=== PATIENT | male | born 1995 | race Caucasian/White ===

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

== ENCOUNTER → 2017-04-24 16:13 | Emergency (ER) | payer OTHER | END | disposition left against medical advice (07) | LOC: CED 16:13 | DX: Z53.21 Procedure and treatment not carried out due to patient leaving prior to being seen by health care provider (principal) ==

== ENCOUNTER 2018-07-11 17:05 | Emergency (ER) | payer OTHER ==
[2018-07-11 17:22] VITALS: BP 147/77
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
== END 2018-07-11 17:57 | disposition home or self-care (01) ==
LOC: CED 17:05
DX: S06.0X0A Concussion without loss of consciousness, initial encounter (principal); Y04.0XXA Assault by unarmed brawl or fight, initial encounter; Y92.009 Unspecified place in unspecified non-institutional (private) residence as the place of occurrence of the external cause
CPT/HCPCS: 99283-ER